=== PATIENT | female | born 1990 | race African-American/Black ===

== ENCOUNTER 2017-04-25 20:35 | Emergency (ER) | payer OTHER ==
[~2017-04-25] VITALS: Ht 152.4 cm; Wt 82.6 kg
[~2017-04-25 20:35] MED LIST: ACETAMINOPHEN325 MG PO; APAP500 PO; DAY TIME COLD-1 EACH PO; DOXYCYCLINE 10100 MG PO; IBUPROFEN 600600 M1 PO; JOLIVETTE0.35 MG PO; KEFLEX500 MG PO; MACROBID 100 M100 M1 PO; NAPROSYN500 MG PO; NORCO 5-325 TA1 EACH PO; PENICILLIN V P500 MG PO; TRINATE TABLET1 TAB PO
[2017-04-25] MEDS ORDERED: NORCO 5-325 TA1 EACH PO (21:52)
[2017-04-25 22:04] VITALS: BP 101/65
== END 2017-04-25 22:05 | disposition home or self-care (01) ==
LOC: ER 20:35
DX: S39.012A Strain of muscle, fascia and tendon of lower back, initial encounter (principal); V49.9XXA Car occupant (driver) (passenger) injured in unspecified traffic accident, initial encounter; Y93.89 Activity, other specified; Y92.89 Other specified places as the place of occurrence of the external cause; Y99.8 Other external cause status

== ENCOUNTER 2017-09-20 15:51 | Emergency (ER) | payer OTHER ==
[~2017-09-20] VITALS: Ht 152.4 cm; Wt 82.6 kg
[2017-09-20] MEDS ORDERED: CLEOCIN HCL150 M1 PO (17:27)
[2017-09-20] MEDS ORDERED: ULTRAM 50MG TAB50 MG PO (17:27)
[2017-09-20] MEDS ORDERED: NORCO 5-325 TA1 EACH PO (17:43)
[2018-05-14] MEDS ORDERED: MUCINEX100 MG PO (12:56)
[2018-05-14] MEDS ORDERED: PREDNISONE 20 M20 MG PO (14:41)
[2018-05-14] MEDS ORDERED: VENTOLIN HFA 1818 GM INH (14:41)
[2018-05-14] MEDS ORDERED: PROMETH-CODEIN 65 ML PO (14:41)
== END 2017-09-20 17:46 | disposition home or self-care (01) ==
LOC: ER 15:51
DX: L05.01 Pilonidal cyst with abscess (principal); F17.210 Nicotine dependence, cigarettes, uncomplicated; Z98.890 Other specified postprocedural states

== ENCOUNTER 2018-11-06 14:59 | Emergency (ER) | payer OTHER ==
[~2018-11-06] VITALS: Ht 152.4 cm; Wt 81.7 kg
[~2018-11-06 14:59] MED LIST changes: +CLEOCIN HCL150 M1 PO; +MUCINEX100 MG PO; +PREDNISONE 20 M20 MG PO; +PROMETH-CODEIN 65 ML PO; +ULTRAM 50MG TAB50 MG PO; +VENTOLIN HFA 1818 GM INH
[2018-11-06 15:01] VITALS: BP 149/68
[2018-11-06] MEDS ORDERED: NORCO 5-325 TA1 EACH PO (16:04)
[2018-11-06] MEDS ORDERED: PENICILLIN VK500 M1 PO (16:04)
== END 2018-11-06 16:00 | disposition home or self-care (01) ==
LOC: ER 14:59
DX: K08.89 Other specified disorders of teeth and supporting structures (principal); R51 Headache; F17.210 Nicotine dependence, cigarettes, uncomplicated; Z98.890 Other specified postprocedural states

== ENCOUNTER 2019-01-15 21:13 | Emergency (ER) | payer BC, OTHER ==
[~2019-01-15] VITALS: Ht 152.4 cm; Wt 83.9 kg
[~2019-01-15 21:13] MED LIST changes: +PENICILLIN VK500 M1 PO
[2019-01-15 23:04] VITALS: BP 111/72
== END 2019-01-15 23:06 | disposition home or self-care (01) ==
LOC: ER 21:13
DX: S40.861A Insect bite (nonvenomous) of right upper arm, initial encounter (principal); F17.210 Nicotine dependence, cigarettes, uncomplicated; Z98.890 Other specified postprocedural states; W57.XXXA Bitten or stung by nonvenomous insect and other nonvenomous arthropods, initial encounter; Y93.89 Activity, other specified; Y92.89 Other specified places as the place of occurrence of the external cause; Y99.8 Other external cause status

== ENCOUNTER 2019-06-11 13:57 | Emergency (ER) | payer BC, OTHER ==
[~2019-06-11] VITALS: Ht 152.4 cm; Wt 82.6 kg
[2019-06-11] MEDS ORDERED: BENADRYL25 MG PO (14:45)
[2019-06-11] MEDS ORDERED: ERYTHROMYCIN 2%60 GM TOP (14:45)
[2019-06-11 15:30] VITALS: BP 139/84
== END 2019-06-11 15:30 | disposition home or self-care (01) ==
LOC: ER 13:57
DX: L70.0 Acne vulgaris (principal); F17.210 Nicotine dependence, cigarettes, uncomplicated; Z98.890 Other specified postprocedural states

== ENCOUNTER 2019-06-14 23:16 | Emergency (ER) | payer BC, OTHER ==
[~2019-06-14] VITALS: Ht 152.4 cm; Wt 81.7 kg
[~2019-06-14 23:16] MED LIST changes: +BENADRYL25 MG PO; +ERYTHROMYCIN 2%60 GM TOP
[2019-06-14 23:44] LABS: URINE BILIRUBIN NEGATIVE (Negative); URINE BLOOD 3+ (Negative); URINE CLARITY CLOUDY; URINE COLOR RED; URINE GLUCOSE-RANDOM* NEGATIVE (Negative); URINE KETONES TRACE (Negative); URINE LEUKOCYTES-REFLEX TRACE (Negative); URINE NITRITE-REFLEX NEGATIVE (Negative); URINE PROTEIN (DIPSTICK) 2+ (Negative); URINE SPECIFIC GRAVITY >= 1.030 (1.005-1.035)
[2019-06-14 23:53] LABS: AMP/METHAMP POSITIVE (Negative); BARBITURATES Negative (Negative); BENZODIAZEPINES Negative (Negative); COCAINE Negative (Negative); METHADONE Negative (Negative); OPIATES Negative (Negative); PCP Negative (Negative)
[2019-06-14 23:54] LABS: CASTS None Seen /LPF (None Seen); MUCUS None Seen strn/LPF (None Seen); SQUAMOUS 4-10 Moderate /LPF (0-3); URINE RBC >20 Many /HPF (0-2)
[2019-06-14 23:55] LABS: BACTERIA-REFLEX 1-9 Few /HPF (None Seen); CRYSTALS None Seen /LPF (None Seen)
[2019-06-14 23:56] LABS: URINE WBC-REFLEX 6-15 Few /HPF (0-5)
[2019-06-15] MEDS ORDERED: DOXYCYCLINE 10100 MG PO (00:01)
[2019-06-15] MEDS ORDERED: ATIVAN1 MG PO (00:01)
== END 2019-06-15 00:05 | disposition home or self-care (01) ==
LOC: ER 23:16
PROVIDERS: Emergency Medicine
DX: F42.4 Excoriation (skin-picking) disorder (principal); F15.10 Other stimulant abuse, uncomplicated; F41.9 Anxiety disorder, unspecified; L70.9 Acne, unspecified; F17.210 Nicotine dependence, cigarettes, uncomplicated; Z98.890 Other specified postprocedural states